=== PATIENT | male | born 1995 | race Two or more races ===

== ENCOUNTER 2024-06-14 14:53 | Inpatient (IN) | payer OTHER ==
[~2024-06-14] VITALS: Ht 175.3 cm; Wt 70.0 kg
[2024-06-14 16:00] LABS: BASOPHILS % (AUTO) 0.5 % (0.0-2.0); EOSINOPHILS % (AUTO) 1.8 % (1.0-6.0); HEMATOCRIT 37.9 % (41-53); HEMOGLOBIN 13.3 g/dL (13.5-17.5); LYMPHOCYTES # (AUTO) 1.8 K/uL (1.0-4.8); LYMPHOCYTES % (AUTO) 20.8 % (22.0-44.0); MEAN CORPUSCULAR HEMOGLOBIN 32.3 pg (26.0-34.0); MEAN CORPUSCULAR HGB CONC 35.1 G/dL (31.0-37.0); MEAN CORPUSCULAR VOLUME 92 fL (80-100); MONOCYTES # (AUTO) 0.8 K/uL (0.1-1.0); MONOCYTES % (AUTO) 9.2 % (2.0-9.0); NEUTROPHILS # (AUTO) 5.8 K/uL (1.8-7.7); NEUTROPHILS % (AUTO) 67.7 % (40.0-70.0); PLATELET COUNT (AUTO) 233 K/uL (150-450); RED BLOOD CELL COUNT(AUTO) 4.12 MIL/uL (4.50-5.90); WHITE BLOOD COUNT (AUTO) 8.6 K/uL (4.5-11.0)
[2024-06-14 16:28] LABS: ANION GAP 10 mmol/L (8-16); CALCIUM, TOTAL 8.6 mg/dL (8.8-10.5); CARBON DIOXIDE 26 mmol/L (22-29); CHLORIDE 101 mmol/L (98-107); GLOMERULAR FILTR. RATE CALC > 60 mL/min (>60); GLUCOSE,RANDOM 136 mg/dL (70-110); POTASSIUM 3.8 mmol/L (3.5-5.1); SODIUM SERUM 137 mmol/L (136-145); UREA NITROGEN, BLOOD 11 mg/dL (7-18)
[2024-06-14 16:39] LABS: ALANINE AMINOTRANSFERASE 22 U/L (12-78); ALKALINE PHOSPHATASE 112 U/L (46-116); ASPARTATE AMINOTRANSFERASE 26 U/L (15-37); TOTAL PROTEIN, SERUM 7.2 g/dL (6.4-8.2)
[2024-06-14 17:18] LABS: ALCOHOL, URINE DRUG SCREEN NEGATIVE (NEGATIVE); AMPHET/METH SCREEN,URINE POSITIVE (NEGATIVE); BARBITURATE SCREEN, URINE NEGATIVE (NEGATIVE); BENZODIAZEPINES SCREEN,URINE NEGATIVE (NEGATIVE); CANNABINOID SCREEN,URINE NEGATIVE (NEGATIVE); COCAINE SCREEN,URINE NEGATIVE (NEGATIVE); METHADONE SCREEN, URINE NEGATIVE (NEGATIVE); OPIATE SCREEN,URINE NEGATIVE (NEGATIVE); PHENCYCLIDINE SCREEN,URINE NEGATIVE (NEGATIVE)
[2024-06-14 17:30] LABS: ALCOHOL, BLOOD (SERUM) < 3 mg/dL (0-10)
[2024-06-14] MEDS ORDERED: LORazepam 2 MG/ML VIAL IVP PRN (20:30)
[2024-06-14] MEDS ORDERED: DICYCLOMINE HCL 10 MG CAPSULE PO PRN (20:30)
[2024-06-14] MEDS ORDERED: LOPERAMIDE HCL 2 MG CAPSULE PO PRN (20:30)
[2024-06-14] MEDS ORDERED: METOCLOPRAMIDE HCL 5 MG/ML 2 ML VIAL IVP PRN (20:30)
[2024-06-14] MEDS ORDERED: TEMAZEPAM 15 MG CAPSULE PO SCH (21:00)
[2024-06-14 21:01] VITALS: BP 101/62; PULSE 68; RESP 18; TEMP 98.5; O2SAT 99
[2024-06-14] MEDS: TEMAZEPAM 7.5 MG CAPSULE PO SCH (21:08)
[2024-06-14] MEDS: SODIUM CHLORIDE 0.9% 1,000 ML IV ONE (21:09)
[2024-06-15 05:01] VITALS: BP 101/56; PULSE 73; RESP 18; TEMP 97.8; O2SAT 98
[2024-06-15 07:42] VITALS: BP 103/58; PULSE 74; RESP 18; TEMP 98.2; O2SAT 99
[2024-06-15 15:23] VITALS: BP 99/57; PULSE 71; RESP 18; TEMP 98.4; O2SAT 99
[2024-06-15 20:05] VITALS: BP 106/65; PULSE 67; RESP 18; TEMP 99; O2SAT 100
[2024-06-16 05:37] VITALS: BP 109/72; PULSE 75; RESP 18; TEMP 98; O2SAT 100
[2024-06-16 08:02] VITALS: BP 104/63; PULSE 72; RESP 18; TEMP 97.9; O2SAT 100
== END 2024-06-16 11:40 | DRG 897 ==
LOC: EMS 14:53 → EDH 18:22 → 6S 21:00
PROVIDERS: ADMIT Internal Medicine; ATTEND Internal Medicine
PROC: HZ2ZZZZ Detoxification Services for Substance Abuse Treatment (ICD-10-PCS; principal; 2024-06-14)
DX: F15.23 Other stimulant dependence with withdrawal (principal); E46 Unspecified protein-calorie malnutrition; F10.939 Alcohol use, unspecified with withdrawal, unspecified; R73.9 Hyperglycemia, unspecified; D64.9 Anemia, unspecified; Z68.22 Body mass index [BMI] 22.0-22.9, adult; F14.90 Cocaine use, unspecified, uncomplicated; Z87.891 Personal history of nicotine dependence
CPT/HCPCS: 80048; 80076; 80307; 85025; 99285; G0480; J7030